=== PATIENT | male | born 1965 | race African-American/Black ===

== ENCOUNTER 2022-07-13 07:57 | Emergency (ER) | payer BC, OTHER ==
[~2022-07-13] VITALS: Ht 172.7 cm; Wt 82.0 kg
[2022-07-13 08:09] VITALS: BP 128/95
[2022-07-13] MEDS ORDERED: LIDOCAINE HCL/PF 1% 10 MG/ML 5ML VIAL INFIL ONE (09:00)
[2022-07-13] MEDS ORDERED: BACITRACIN ZINC OINT UDPKT TOP ONE (09:00)
== END 2022-07-13 10:29 | disposition home or self-care (01) ==
LOC: ER 07:57
DX: M70.22 Olecranon bursitis, left elbow (principal); I10 Essential (primary) hypertension; Z87.828 Personal history of other (healed) physical injury and trauma
CPT/HCPCS: 20605; 73080; 99283; J3490

== ENCOUNTER 2022-08-09 07:58 | Emergency (ER) | payer BC ==
[~2022-08-09] VITALS: Ht 172.7 cm; Wt 82.0 kg
[2022-08-09 08:09] VITALS: BP 177/95
[2022-08-09] MEDS ORDERED: LIDOCAINE HCL 1% 20ML VIAL (Pyxis) INJ INFIL ONE (10:00)
[2022-08-09] MEDS ORDERED: LIDOCAINE HCL/PF 1% 10 MG/ML 5ML VIAL INFIL NR (10:30)
[2022-08-09] MEDS ORDERED: IBUP-2028 MT (10:34)
[2022-08-09] MEDS ORDERED: AMLO10TA80 MT (10:34)
== END 2022-08-09 10:45 | disposition home or self-care (01) ==
LOC: ER 07:58
DX: M70.22 Olecranon bursitis, left elbow (principal); Z76.0 Encounter for issue of repeat prescription
CPT/HCPCS: 99283; Z7610